=== PATIENT | female | born 1945 | race Caucasian/White ===

== ENCOUNTER 2017-05-13 11:28 | Inpatient (IN) | payer OTHER, BC ==
[~2017-05-13] VITALS: Ht 160 cm; Wt 82.1 kg
--- NOTE | ~2017-05-13 | O ---
[facility] [place] [address] OPERATIVE REPORT Name: IRENE MILLAN Room #: 150-5 ADM IN M.R.#: [id number] Admission: 06/03/17 Attend Phys: Rosalino Portillo MD Discharge: Date of : 43 Report #: [id number] THIS REPORT FOR: //name// CC: Aashish Avila DO Rosalino Portillo DATE OF SERVICE: 06/03/2017 PREOPERATIVE DIAGNOSIS: Left knee degenerative joint disease, severe. POSTOPERATIVE DIAGNOSIS: Left knee degenerative joint disease, severe. PROCEDURE: Left total knee arthroplasty. SURGEON: Rosalino Portillo MD VIDEO ENGINEER: MARGARITA Post ANESTHETIC: General. INDICATIONS: See hospital H and P. IMPLANTS UTILIZED: Used a DePuy PFC knee system. Used a cruciate retaining femoral component size 4 narrow, size 3 tibial tray with a 10 mm insert and a 38 mm oval dome patella. DESCRIPTION OF PROCEDURE: After adequate general anesthesia had been obtained, the patient's left lower extremity was prepped and draped in the usual meticulous sterile fashion. Limb was exsanguinated with gravity, tourniquet inflated to 350 torr. An anterior midline incision was made. SubQ divided sharply. Hemostasis obtained with electrocautery. Medial parapatellar incision was made. Infrapatellar fat pad excised. Medial release performed. The knee was flexed. The drill was used to drill the distal femur. This hole was enlarged, irrigated, suctioned, and the intramedullary guide placed the full length of the femur. The distal femoral cutting guide was set at 5 degrees of valgus, which matched the patient's anatomy. The distal femoral cutting guide was pinned into place and the distal femoral cut was made. The measuring device determined the size 4 as appropriate size for this patient. We used a 4 narrow on the other side, which was appropriate for this side as well. The distal femur was marked, cutting guide impacted in place and the anterior, posterior and chamfer cuts were made. Rongeur was used to remove additional osteophytes. At this time, the ACL was transected, tibia translated anteriorly and menisci were excised. The drill was used to drill the central portion of the tibia. This hole was enlarged, irrigated, suctioned, and the intramedullary guide [facility] [address] [place] [address] OPERATIVE REPORT Name: IRENE MILLAN Room #: 150-5 ADM IN M.R.#: [id number] Admission: 06/03/17 Attend Phys: Rosalino Portillo MD Discharge: Date of : 43 Report #: [id number] placed the full length of the tibia. Proximal tibial cutting guide placed at appropriate height. Proximal tibia cut was made, 3 tray gave us the best coverage on the tibia. Trial components were put in position with a 10 spacer. She had the best flexion and extension gap. She did have some roll back in flexion, so I elected to release the PCL from the tibia and this resulted in improved flexion and roll back. I did probe bluntly with finger posteriorly to decompress any popliteal cyst that she may have. The patella was then measured, cutting guide clamped into place, patellar cut was made. A 38 template gave us the best coverage. Pedicles were drilled, trial component put in position, it tracked normally. At this time, the knee was taken through several cycles of flexion and extension. The tibial tray rotation was marked, distal femur drilled. Trial components were removed. We irrigated the knee with both pulse lavage and antibiotic irrigation. Bone plugs were placed in the proximal tibia and distal femur. The cement was vacuum mixed and when it reached the appropriate consistency, the knee was thoroughly dried. The tibial tray was cemented into place, excess cement was removed. The polyethylene was impacted in place and the femur impacted in place and the knee was taken out to 30 degrees of flexion with uniform compression placed across components. Patellar button was then cemented into place and again excess cement was removed. The irrigation was placed in the wound and allowed to rest in the wound until the cement fully cured. When it had done so, the knee was irrigated, dried thoroughly, inspected. Drains were placed superolaterally, both deep and superficial. The retinacular layer closed with combination of interrupted erlcma-kr-rugny #1 Vicryl as well as running #1 Tevdek. SubQ closed with 2-0 Monocryl, skin closed with ben. Sterile compressive dressing was applied. Tourniquet was then deflated. By: [id number] Rosalino Portillo MD /nt
[~2017-05-13 11:28] MED LIST: ASPIRIN EC81 M1 PO; CALCIUM 600 +1 EAC1 PO; LISINOPRIL10 MG PO; MULTIVITAMINS PO; PAXIL10 MG PO; PERCOCET 10-321 EACH PO; SYNTHROID100 MCG PO; ULTRA-LIGHT RO1 EACH MC; VITAMINC500 PO; XANAX XR1 MG PO; XARELTO10 MG PO
[2017-05-26] MEDS ORDERED: XANAX 0.5 MG0.5 MG PO (15:43)
[2017-05-26] MEDS ORDERED: ZESTRIL20 MG PO (15:44)
[2017-05-26] MEDS ORDERED: ASPIR 8181 MG PO (15:46)
[2017-05-26] MEDS ORDERED: ZANTAC 150MG T150 MG PO (15:47)
[2017-05-28 11:30] LABS: URINE BILIRUBIN NEGATIVE (Negative); URINE BLOOD NEGATIVE (Negative); URINE COLOR YELLOW; URINE GLUCOSE-RANDOM* NEGATIVE (Negative); URINE KETONES NEGATIVE (Negative); URINE PROTEIN (DIPSTICK) NEGATIVE (Negative); URINE UROBILINOGEN 0.2 E.U./dl (0.2-1.0)
[2017-05-28 11:31] LABS: HEMATOCRIT 44.6 % (37.0-47.0); HEMOGLOBIN 15.5 gm/dL (12.0-15.0); MCH 32.4 pg (26.0-34.0); MCHC 34.7 g/dL (28.0-37.0); MCV 93.3 fL (80.0-100.0); RBC 4.78 mil/uL (4.20-5.00); RDW 13.1 % (10.5-14.5); URINE LEUKOCYTES-REFLEX 2+ (Negative); WBC 5.4 thou/uL (4.0-11.0)
[2017-05-28 11:42] LABS: INR 1.1; PROTIME 11.6 Seconds (9.3-11.4)
[2017-05-28 11:43] LABS: ALBUMIN 3.6 g/dL (3.4-5.0); CALCIUM 9.2 mg/dL (8.5-10.1); CREATININE 0.7 mg/dL (0.6-1.0); POTASSIUM 4.2 mmol/L (3.5-5.1)
[2017-05-28 12:06] LABS: CASTS None Seen /LPF (None Seen); SQUAMOUS >10 Many /LPF (0-3)
[2017-05-28 12:08] LABS: CRYSTALS None Seen /LPF (None Seen); URINE RBC 0-2 Rare /HPF (0-2); URINE WBC-REFLEX 6-15 Few /HPF (0-5)
[2017-06-03] VITALS (7 sets, daily range): BP systolic 101–160; BP diastolic 56–85
[2017-06-03 14:20] LABS: ABG SAMPLE TYPE ARTERIAL; BE(vivo) -2.5 mmol/L (-2 to +3); HCO3 26.6 mmol/L (22.0-26.0); LACTATE 1.32 mmol/L (0.5-2.0); O2(CT) 18.7 mL/dL (15.0-23.0); O2Hb 93.5 % (92.0-98.0); PO2 76.2 mmHg (80.0-100.0); sO2 92.3 % (92.0-98.0); tCO2 28.6 mmol/L (24.0-30.0)
[2017-06-03 14:21] LABS: PCO2 65.6 mmHg (35.0-45.0); STICK SITE R.RADIAL; pH 7.226 (7.360-7.450)
[2017-06-04 00:10] VITALS: BP 104/55
[2017-06-04 05:31] VITALS: BP 115/58
[2017-06-04 08:00] VITALS: BP 111/56
[2017-06-04 08:00] LABS: HEMATOCRIT 31.9 % (37.0-47.0); HEMOGLOBIN 11.1 gm/dL (12.0-15.0); MCH 32.7 pg (26.0-34.0); MCHC 34.8 g/dL (28.0-37.0); MCV 93.9 fL (80.0-100.0); PLATELET COUNT 156 thou/uL (150-400); RDW 13.1 % (10.5-14.5); WBC 13.3 thou/uL (4.0-11.0)
[2017-06-04 08:03] LABS: MANUAL DIFF YES
[2017-06-04 08:07] LABS: CALCIUM 8.4 mg/dL (8.5-10.1); CREATININE 1.3 mg/dL (0.6-1.0); MAGNESIUM 1.8 mg/dL (1.8-2.4); POTASSIUM 3.8 mmol/L (3.5-5.1)
[2017-06-04 09:13] LABS: ABSOLUTE NEUTROPHILS 11.8 thou/uL (1.4-8.2); PLATELET ESTIMATE NORMAL; TOTAL CELL COUNT 100
[2017-06-04 10:16] VITALS: BP 111/56
[2017-06-04 16:00] VITALS: BP 128/52
[2017-06-04 20:00] VITALS: BP 130/63
[2017-06-05 04:00] VITALS: BP 153/74
[2017-06-05 06:09] LABS: HEMATOCRIT 33.4 % (37.0-47.0); HEMOGLOBIN 11.3 gm/dL (12.0-15.0); MCH 32.1 pg (26.0-34.0); MCHC 33.9 g/dL (28.0-37.0); MCV 94.8 fL (80.0-100.0); RBC 3.53 mil/uL (4.20-5.00); RDW 13.1 % (10.5-14.5); WBC 13.6 thou/uL (4.0-11.0)
[2017-06-05] MEDS ORDERED: MS CONTIN15 MG PO (07:06)
[2017-06-05] MEDS ORDERED: XARELTO10 MG PO (07:06)
[2017-06-05] MEDS ORDERED: PERCOCET 10-321 EACH PO (07:06)
[2017-06-05 08:00] VITALS: BP 148/83
[2017-06-05 12:07] VITALS: BP 111/56
[2017-06-05 19:25] VITALS: BP 130/63
[2017-06-06 06:16] VITALS: BP 122/67
[2017-06-06 06:39] LABS: HEMATOCRIT 29.8 % (37.0-47.0); HEMOGLOBIN 10.5 gm/dL (12.0-15.0); MCHC 35.2 g/dL (28.0-37.0); MCV 93.6 fL (80.0-100.0); RBC 3.18 mil/uL (4.20-5.00); RDW 12.8 % (10.5-14.5)
[2017-06-06 07:51] VITALS: BP 101/56
== END 2017-06-06 13:34 | disposition home health service (06) | DRG 469 ==
LOC: PRE 11:28 → TBA 06-03 05:40 → 4N 06-03 05:40 → PRE 06-03 10:10 → 4N 06-03 15:08 → ENTRNSPT 06-06 13:17 → EDTRNSPTSTS 06-06 13:19 → 4N 06-06 13:34
PROVIDERS: Anesthesiology; Nurse Practitioner; Orthopaedic Surgery
PROC: 0SRD0J9 Replacement of Left Knee Joint with Synthetic Substitute, Cemented, Open Approach (ICD-10-PCS; principal; 2017-06-03)
DX: M17.12 Unilateral primary osteoarthritis, left knee (principal); J96.01 Acute respiratory failure with hypoxia; K21.9 Gastro-esophageal reflux disease without esophagitis; I10 Essential (primary) hypertension; F32.9 Major depressive disorder, single episode, unspecified; F41.9 Anxiety disorder, unspecified; E03.9 Hypothyroidism, unspecified; F41.0 Panic disorder [episodic paroxysmal anxiety]; M77.42 Metatarsalgia, left foot; M20.42 Other hammer toe(s) (acquired), left foot; E66.9 Obesity, unspecified; Z88.0 Allergy status to penicillin; Z79.899 Other long term (current) drug therapy; Z88.2 Allergy status to sulfonamides; Z91.040 Latex allergy status; Z79.82 Long term (current) use of aspirin; Z68.32 Body mass index [BMI] 32.0-32.9, adult
CPT/HCPCS: 10790; 50010; 50101; 50415; 50612; 50954; 51130; 51225; 51320; 51412; 51771; 52001; 53000; 53078; 53364; 56525; 56527; 62110; 62900; 64042; 64043; 70005